=== PATIENT | male | born 1955 ===

== ENCOUNTER 2017-02-10 08:22 | Day surgery (SDC) | payer MEDICARE, MEDICAID ==
[2017-02-02 12:36] VITALS: BMI 51.7
[2017-02-10] MEDS ORDERED: Propofol 10 mg/ml Inj (20 ML) ONE (10:39)
[2017-02-10] MEDS ORDERED: Lidocaine Hydrochloride 5 ML INJ ONE (10:40)
[2017-02-10] MEDS ORDERED: Lactated Ringer's 500 ML IV SCH (11:00)
[2017-02-10 17:52] VITALS: RESP 18
[2017-02-10 17:54] VITALS: O2SAT 100
[2017-02-10 17:58] VITALS: BP 136/72; PULSE 71; TEMP 97.3
== END 2017-02-10 12:10 | disposition home or self-care (01) ==
LOC: C.ENDO 08:22
PROVIDERS: ATTEND Internal Medicine Gastroenterology
DX: Z12.11 Encounter for screening for malignant neoplasm of colon (principal); D12.0 Benign neoplasm of cecum; D12.4 Benign neoplasm of descending colon; D17.5 Benign lipomatous neoplasm of intra-abdominal organs; K64.0 First degree hemorrhoids
CPT/HCPCS: 45380; 45385; 82948; 88305; J2704; J3010; J7120